=== PATIENT | male | born 1990 | race African-American/Black ===

== ENCOUNTER 2020-02-18 13:43 | Emergency (ER) | payer MEDICAID ==
[~2020-02-18] VITALS: Ht 180.3 cm; Wt 87.1 kg
[2020-02-18 13:48] VITALS: BP 148/92
[2020-02-18] MEDS: ALUMINUM HYD/MAG/SIMETHICONE 30 ML UDC PO ONE (14:40)
[2020-02-18 14:47] LABS: BASOPHILS % (AUTO) 0.4 % (0.0-2.0); EOSINOPHILS # (AUTO) 0.1 K/uL (0-0.4); HEMATOCRIT 47.3 % (36-52); HEMOGLOBIN 15.6 g/dL (12.0-18.0); LYMPHOCYTES # (AUTO) 1.9 K/uL (2.0-11.5); LYMPHOCYTES % (AUTO) 34.8 % (20.5-51.1); MEAN CORPUSCULAR HEMOGLOBIN 26 pg (27-31); MEAN CORPUSCULAR HGB CONC 33 g/dL (33-37); MONOCYTES # (AUTO) 0.6 K/uL (0.8-1.0); MONOCYTES % (AUTO) 10.8 % (1.7-9.3); NEUTROPHILS # (AUTO) 2.9 K/uL (1.8-7.7); PLATELET COUNT (AUTO) 201 K/uL (140-450); RED BLOOD CELL COUNT(AUTO) 5.91 MIL/uL (4.20-6.10); RED CELL DISTRIBUTION WIDTH 14.9 % (11.6-13.7); WHITE BLOOD COUNT (AUTO) 5.4 K/uL (4.8-10.8)
[2020-02-18 15:07] LABS: ALBUMIN 4.4 g/dL (3.4-5.0); CARBON DIOXIDE 26.9 mmol/L (21-32); CREATININE 1.3 mg/dL (0.6-1.3); POTASSIUM 3.9 mmol/L (3.5-5.1); TOTAL BILIRUBIN 0.3 mg/dL (0.0-1.0)
[2020-02-18 15:55] VITALS: BP 148/92
== END 2020-02-18 15:56 | disposition home or self-care (01) ==
LOC: MED 13:43
DX: R10.11 Right upper quadrant pain (principal); R11.0 Nausea
CPT/HCPCS: 36415; 76705; 80053; 83690; 85025; 99284; Q0092

== ENCOUNTER 2020-02-26 03:24 | Emergency (ER) | payer MEDICAID ==
[~2020-02-26] VITALS: Ht 182.9 cm; Wt 87.5 kg
[2020-02-26 03:34] VITALS: BP 113/62
--- NOTE | 2020-02-26 03:40 | NUR ---
PT AMBULATED TO BED 04 WITH STEADY GAIT.
--- NOTE | 2020-02-26 03:41 | NUR ---
PT IN RESTROOM, STEADY GAIT.
--- NOTE | 2020-02-26 03:49 | NUR ---
30 Y/O M PRESENTS TO ED C/O DIZZINESS THAT STARTED AT 2200 LAST NIGHT. PT STATES THAT HE IS ALSO EXPERIENCING HEADACHE, MAINLY ON THE RIGHT TEMPORAL. PT STATES THAT HE DID THROW UP ONCE ABOUT AN HOUR AGO BUT DENIES DIARRHEA, INJURY OR TRAUMA TO THE AFFECTED AREA. PT AAOX4. ABLE TO AMBULATE WITH STEADY GAIT. BED LOCKED AND IN LOWEST POSITION, SIDE RAIL UPX1. WILL CONTINUE TO MONITOR. PMH: DENIES NKA
[2020-02-26] MEDS ORDERED: ONDANSETRON 4 MG ODT PO ONE (03:50)
[2020-02-26] MEDS ORDERED: KETOROLAC 60 MG/2 ML VIAL IM ONE ×2 (03:50)
--- NOTE | 2020-02-26 04:01 | NUR ---
PT TAKEN TO CT VIA WHEELCHAIR.
--- NOTE | 2020-02-26 04:13 | NUR ---
PT BACK FORM CT VIA WHEELCHAIR.
[2020-02-26] MEDS ORDERED: MECLIZINE 25 MG TAB PO ONE (04:15)
--- NOTE | 2020-02-26 04:47 | NUR ---
Patient discharged with v/s stable. Written and verbal after care instructions given and explained. Patient alert, oriented and verbalized understanding of instructions. Ambulatory with steady gait. All questions addressed prior to discharge. ID band removed. Patient advised to follow up with PMD. Rx of MECLIZINE AND MOTRIN given. Patient educated on indication of medication including possible reaction and side effects. Opportunity to ask questions provided and answered.
[2020-02-26 04:50] VITALS: BP 118/86
== END 2020-02-26 04:47 | disposition home or self-care (01) ==
LOC: MED 03:24
DX: G44.209 Tension-type headache, unspecified, not intractable (principal); R42 Dizziness and giddiness
CPT/HCPCS: 70450; 99284; J1885; J8597; Q0162

== ENCOUNTER 2020-03-02 05:55 | Emergency (ER) | payer MEDICAID ==
[~2020-03-02] VITALS: Ht 180.3 cm; Wt 87.1 kg
[2020-03-02 06:00] VITALS: BP 123/90
--- NOTE | 2020-03-02 06:00 | NUR ---
TO BED # 08 AMBULATORY
[2020-03-02] MEDS ORDERED: LIDOCAINE VISCOUS 2% 20 ML UDC PO ONE (06:15)
--- NOTE | 2020-03-02 06:24 | NUR ---
30 Y/O M PRESENTS TO ED C/O FOREIGN BODY STUCK IN HIS THROAT. PT STATES "IT FEELS LIKE SOMETHING I ATE EARLIER IS STUCK." STATES HAVING DIFFICULTY WITH SWALLOWING AND BREATHING ABOUT AN HOUR PRIOR TO ARRIVAL TO ER. PT ABLE TO SPEAK WITH NO DIFFICULTY. VSS. RR EVEN AND UNLABORED. BED LOCKED AND IN LOWEST POSITION, SIDE RAIL UPX1. WILL CONTINUE TO MONITOR. MHX: DENIES NKA
--- NOTE | 2020-03-02 06:38 | NUR ---
DR. JOHNSON AT BEDSIDE.
[2020-03-02 06:51] VITALS: BP 123/90
--- NOTE | 2020-03-02 06:52 | NUR ---
Patient discharged with v/s stable. Written and verbal after care instructions given and explained. Patient verbalized understanding. Ambulatory with steady gait. All questions addressed prior to discharge. Advised to follow up with PMD.
== END 2020-03-02 06:52 | disposition home or self-care (01) ==
LOC: MED 05:55
DX: F45.8 Other somatoform disorders (principal); R07.0 Pain in throat
CPT/HCPCS: 99282